=== PATIENT | female | born 1950 | race Caucasian/White ===

== ENCOUNTER 2017-01-01 03:25 | Inpatient (IN) | payer MEDICARE, BC ==
[2017-01-01] MEDS ORDERED: HYDROcodone/APAP 5-325MG 1 EACH TAB PO STA (03:39)
--- NOTE | 2017-01-01 03:41 | ED ---
Lower Extremity Injury HPI - General Source: patient, RN notes reviewed Mode of arrival: ambulatory Limitations: no limitations <Sheila Sesay - Last Filed: 01/01/17 04:11> <Sha Ramos - Last Filed: 01/01/17 05:18> - General Chief Complaint: Extremity Injury, Lower Stated Complaint: Fall,leg injury Time Seen by Provider: 01/01/17 03:36 - History of Present Illness Initial Comments: 66-year-old female presents emergency Department chief complaint of right ankle pain. Patient states she was walking out to the car and she slipped on ice. Patient states she has right ankle pain and she is unable to bear weight. Patient states this appeared to be creaking and cracking. Patient denies any knee pain. Patient denies lightheadedness or dizziness before the fall. Patient states there is no loss of consciousness. Patient states that she did not hit her head. Patient denies any other injuries from the incident.Patient denies any recent fever, chills, shortness of breath, chest pain, back pain, abdominal pain, nausea vomiting, numbness or tingling, dysuria or hematuria, constipation or diarrhea, headaches or visual changes, or any other current symptoms. (Sheila Sesay) - Related Data Home Medications Medication Instructions Recorded Confirmed Artificial Tears-Hypromellose 1 drops BOTH EYES TID PRN 11/12/16 11/13/16 [Artificial Tear Drops] Aspirin [Adult Low Dose Aspirin EC] 81 mg PO DAILY 11/12/16 11/13/16 Atorvastatin Calcium [Lipitor] 10 mg PO DAILY 11/12/16 11/13/16 Cholecalciferol [Vitamin D3] 1,000 unit PO DAILY 11/12/16 11/13/16 Cyanocobalamin [Vitamin B-12] 500 mcg PO DAILY 11/12/16 11/13/16 Insulin Aspart (For Pump) [NovoLOG 0.01 unit SQ-PUMP CONTINUOUS 11/12/16 (For Pump)] Levothyroxine Sodium [Synthroid] 75 mcg PO DAILY 11/12/16 11/13/16 Previous Rx's Medication Instructions Recorded Lisinopril [Zestril] 40 mg PO DAILY #30 tab 11/13/16 Allergies Allergy/AdvReac Type Severity Reaction Status Date / Time No Known Allergies Allergy Verified 01/01/17 03:35 Review of Systems ROS Other: All systems not noted in ROS Statement are negative. <Sheila Sesay - Last Filed: 01/01/17 04:11> ROS Other: All systems not noted in ROS Statement are negative. <Sha Ramos - Last Filed: 01/01/17 05:18> ROS Statement: Those systems with pertinent positive or pertinent negative responses have been documented in the HPI. Past Medical History Past Medical History: CVA/TIA, Diabetes Mellitus, Eye Disorder, Hyperlipidemia, Hypertension, Myocardial Infarction ([place]), Osteoarthritis (OA), Thyroid Disorder Additional Past Medical History / Comment(s): TIA, irregular heart beat, neuropathy feet Last Myocardial Infarction Date:: unknown History of Any Multi-Drug Resistant Organisms: None Reported Past Surgical History: Section, Cholecystectomy Additional Past Surgical History / Comment(s): eye surgery repair retina, laser surgery bilat. Past Anesthesia/Blood Transfusion Reactions: No Reported Reaction, Motion Sickness Past Psychological History: No Psychological Hx Reported Smoking Status: Never smoker Past Alcohol Use History: None Reported Past Drug Use History: None Reported - Past Family History Mother Family Medical History: Cancer, Coronary Artery Disease (CAD) Additional Family Medical History / Comment(s): lymphoma Father Family Medical History: Coronary Artery Disease (CAD) <Sheila Sesay - Last Filed: 01/01/17 04:11> General Exam Limitations: no limitations <Sheila Sesay - Last Filed: 01/01/17 04:11> <Sha Ramos - Last Filed: 01/01/17 05:18> - General Exam Comments Initial Comments: General: The patient is awake and alert, in no distress, and does not appear acutely ill. Neck: The neck is supple, there is no tenderness. Cardiovascular: There is a regular rate and rhythm. No murmur, rub or gallop is appreciated. Respiratory: Lungs are clear to auscultation, respirations are non-labored, breath sounds are equal. No wheezes, stridor, rales, or rhonchi. Musculoskeletal: Sensation intact with 2+ pulses. And right lower extremity. Patient has swelling around the right ankle with tenderness over the lateral malleolus. Patient has no tenderness patient approximately tib-fib showing motion of the right knee. Neurological: CN II-XII intact, There are no obvious motor or sensory deficits. Coordination appears grossly intact. Speech is normal. Skin: Skin is warm and dry and no rashes or lesions are noted. Psychiatric: Normal mood and affect. (Sheila Sesay) Procedures - Orthopedic Splinting/Casting Injury #1 Side: right Lower Extremity Injury Location: lower leg Lower Extremity Immobilizer: posterior splint (Long leg) <Sheila Sesay - Last Filed: 01/01/17 04:11> Medical Decision Making - Radiology Data Radiology results: image reviewed <Sheila Sesay - Last Filed: 01/01/17 04:11> - EKG Data -: EKG Interpreted by Hi EKG shows normal: sinus rhythm (Sinus rhythm rate 90 KS interval 154 QRS duration 70 daily QT/QTC of 360/440 poor R-wave progression no acute ST-T wave changes seen at this time.) <Sha Ramos - Last Filed: 01/01/17 05:18> - Medical Decision Making 66-year-old male presents to the right ankle injury. At this time patient appears to have a spiral tib-fib fracture as well as a trimalleolar ankle fracture. Patient was placed in a splint. Dr. Olson was called regarding the case. This time we will admit the patient we will give pain control. We discussed this with the patient she is negative. The plan. All questions have been answered. (Sheila Sesay) Disposition Time of Disposition: 04:12 Decision Date: 01/01/17 Decision Time: 04:13 <Sheila Sesay - Last Filed: 01/01/17 04:11> <Sha Ramos - Last Filed: 01/01/17 05:18> Clinical Impression: Fall, Right tibial fracture, Trimalleolar fracture of ankle, closed Disposition: ADMITTED IP TO THIS [facility] Condition: Stable Referrals: Yonis Cerda III, MD [Primary Care Provider] - 1-2 days
[2017-01-01] MEDS ORDERED: NALOXONE 0.4 MG/ML 1 ML VIAL IV PRN ×2 (04:13→18:58)
[2017-01-01] MEDS ORDERED: ONDANSETRON 4 MG/2 ML VIAL IVP PRN (04:13)
[2017-01-01] MEDS ORDERED: HYDROmorphone 1 MG/ML 1 ML SYRINGE IV PRN (04:13)
[2017-01-01] MEDS ORDERED: ACETAMINOPHEN TAB 325 MG TAB PO PRN (04:13)
--- NOTE | 2017-01-01 04:32 | XR ---
EXAMINATION TYPE: XR ankle complete RT DATE OF EXAM: 01/01/2017 3:59 AM COMPARISON: Right tibia and fibula 01/01/2017 HISTORY: History of fall on ice TECHNIQUE: Frontal, lateral and oblique images of the right ankle are obtained. COMPARISON: None. FINDINGS: There is evidence of acute displaced trimalleolar fractures of right tibia and fibula with fractures of medial and lateral malleoli and posterior malleolus with intra-articular fracture change s with anterior subluxation of distal right tibia over the talus tarsal bone with surrounding soft ti ssue swelling. The right lateral malleolus fracture is mostly in the distal metaphysis area of right fibula. Vascular calcifications are noted. [id number] degenerative changes are present in the right ank le joint. There is derangement of the right ankle mortise. There is also evidence of acute comminuted oblique displaced fracture of distal diaphysis of generali zed right tibia. IMPRESSION: 1. Evidence of trimalleolar fracture dislocation of right ankle as described above. 2. Degenerative changes. 3. Soft tissue swelling. 4. Derangement of ankle mortise.
--- NOTE | 2017-01-01 04:36 | XR ---
EXAMINATION TYPE: XR tibia fibula RT DATE OF EXAM ORDERED: 01/01/2017 3:59 AM HISTORY: Fall on ice. COMPARISON: Right ankle 01/01/2017. FINDINGS: Evidence of acute comminuted displaced fracture of distal diaphysis of right tibia with pierre rrounding soft tissue swelling. Evidence of acute displaced fracture of distal metaphysis and right lateral malleolus. Displaced acut e medial malleolus and the posterior malleolus fractures with intra-articular fracture of distal righ t tibia with derangement of ankle mortise. IMPRESSION: 1. EVIDENCE OF OBLIQUE COMMINUTED DISPLACED FRACTURE OF DISTAL DIAPHYSIS OF RIGHT TIBIA. 2. FRACTURES DISPLACED FRACTURES OF MEDIAL AND LATERAL MALLEOLI AND POSTERIOR MALLEOLUS OF THE DISTAL RIGHT TIBIA AND FIBULA WITH ANTERIOR DISLOCATION OF ANKLE MORTISE. 3. SURROUNDING SOFT TISSUE SWELLING.
[2017-01-01 05:14] LABS: Basophils % (A) 0 %; CH 30.9; CHCM 33.8; Eosinophils # (A) 0.1 k/uL (0-0.7); Eosinophils % (A) 1 %; HCT 36.2 % (34.0-46.0); HGB 12.1 gm/dL (11.4-16.0); Luc # (Auto) 0.13; Luc % (Auto) 2; Lymphocytes # (A) 1.4 k/uL (1.0-4.8); Lymphocytes % (A) 18 %; MCH 30.5 pg (25.0-35.0); MCHC 33.3 g/dL (31.0-37.0); MCV 91.6 fL (80.0-100.0); Mean Platelet Volume 6.8; Monocytes # (A) 0.4 k/uL (0-1.0); Monocytes % (A) 6 %; Neutrophils % (A) 74 %; RBC 3.95 m/uL (3.80-5.40); RDW 12.4 % (11.5-15.5); WBC 8.1 k/uL (3.8-10.6); WBC (Perox) 8.47
[2017-01-01 05:23] LABS: ALT 40 U/L (9-52); AST 24 U/L (14-36); Alkaline Phosphatase 126 U/L (38-126); Anion Gap 12 mmol/L; Blood Urea Nitrogen 27 mg/dL (7-17); Carbon Dioxide 22 mmol/L (22-30); Chloride 104 mmol/L (98-107); Glucose 284 mg/dL (74-99); Non-African American GFR(MDRD) >60 (>60 ml/min/1.73 sqM); Potassium 4.3 mmol/L (3.5-5.1); Sodium 138 mmol/L (137-145); Total Bilirubin 0.5 mg/dL (0.2-1.3); Total Protein 6.5 g/dL (6.3-8.2)
[2017-01-01 06:51] LABS: Glucose,Whole Blood 271 mg/dL (75-99)
[2017-01-01] MEDS: SODIUM CHLORIDE 0.9% 1,000 ML IV SCH ×2 (07:32→23:43)
--- NOTE | 2017-01-01 09:15 | P.HPOR ---
History of Present Illness H&P Date: 01/01/17 Chief Complaint: Right tibia and ankle fractures This is a 66-year-old female who presented to the emergency department early this morning after sustaining a fall on ice. The patient was leaving for the airport when she slipped and fell and ice. She had ankle pain and pain in her lower leg. X-rays revealed tibia fracture as well as fracture of the ankle. Subsequently she was admitted to our service for surgical intervention and care. She was seen and evaluated at bedside this morning with Dr. Tao Olson. She denies any lightheadedness or dizziness. She denies any fevers, chills, nausea, vomiting, shortness of breath or chest pain. Review of Systems See HPI Past Medical History Past Medical History: CVA/TIA, Diabetes Mellitus, Eye Disorder, Hyperlipidemia, Hypertension, Myocardial Infarction ([place]), Osteoarthritis (OA), Thyroid Disorder Additional Past Medical History / Comment(s): TIA, irregular heart beat, neuropathy feet Last Myocardial Infarction Date:: unknown History of Any Multi-Drug Resistant Organisms: None Reported Past Surgical History: Section, Cholecystectomy Additional Past Surgical History / Comment(s): eye surgery repair retina, laser surgery bilat. Past Anesthesia/Blood Transfusion Reactions: No Reported Reaction, Motion Sickness Past Psychological History: No Psychological Hx Reported Smoking Status: Never smoker Past Alcohol Use History: None Reported Past Drug Use History: None Reported - Past Family History Mother Family Medical History: Cancer, Coronary Artery Disease (CAD) Additional Family Medical History / Comment(s): lymphoma Father Family Medical History: Coronary Artery Disease (CAD) Medications and Allergies Home Medications Medication Instructions Recorded Confirmed Type Artificial Tears-Hypromellose 1 drops BOTH EYES TID PRN 11/12/16 01/01/17 History [Artificial Tear Drops] Aspirin [Adult Low Dose Aspirin EC] 81 mg PO DAILY 11/12/16 01/01/17 History Cholecalciferol [Vitamin D3] 2,000 unit PO DAILY 11/12/16 01/01/17 History Cyanocobalamin [Vitamin B-12] 500 mcg PO DAILY 11/12/16 01/01/17 History Insulin Aspart (For Pump) [NovoLOG 0.01 unit SQ-PUMP CONTINUOUS 11/12/16 History (For Pump)] Levothyroxine Sodium [Synthroid] 75 mcg PO SUMOTUTHFRSA 11/12/16 01/01/17 History Atorvastatin [Lipitor] 10 mg PO DAILY 01/01/17 01/01/17 History Enalapril [Vasotec] 10 mg PO BID 01/01/17 01/01/17 History Allergies Allergy/AdvReac Type Severity Reaction Status Date / Time levothyroxine sodium AdvReac dizzy/nausea/heart Verified 01/01/17 08:43 [From Tirosint] racing Physical Examination The patient is seen and evaluated at bedside with Dr. Tao Olson. She is not appear to be in acute distress. She is alert and orientated 3. She is pleasant and answers questions appropriately. Head normal cephalic atraumatic. Neck is supple. She moves her upper extremity is freely without difficulty or pain. Breathing appears nonlabored. On exam of her lower extremities long leg splint is intact to her right lower extremity. Her toes are pink and warm. Capillary refill is brisk. She is able to wiggle her toes without difficulty or pain. No pain out of proportion with passive motion. She has pain at the area of her fractures. She denies any additional areas of pain of her long bones and joints today. Sensation is intact. Results X-rays of the patient's right tibia and fibula and ankle show a trimalleolar fracture dislocation of the right ankle. There is also acute comminuted oblique displaced fracture of the distal diaphysis of the tibia. - Labs Labs: Abnormal Lab Results - Last 24 Hours (Table) 01/01/17 Range/Units 06:47 POC Glucose (mg/dL) 271 H (75-99) mg/dL Result Diagrams: 01/01/17 05:00 01/01/17 05:00 Assessment and Plan (1) Fall Status: Acute (2) Right tibial fracture Status: Acute (3) Trimalleolar fracture of ankle, closed Status: Acute Plan: The patient was seen and evaluated at bedside with Dr. Tao Olson. The clinical and x-ray findings were discussed with the patient. Operative treatment is recommended with IM nailing of the right tibia and ORIF of the right ankle. Possible risks and complications of the procedure were discussed at length as well. Also discussed that she is at higher risk for infection and complications secondary to diabetes. He discussed that she will be nonweightbearing following the procedure and may require rehab placement as she lives alone. We'll await consultation with medicine for surgical clearance. We are planning for possible surgery this afternoon if she is medically cleared. All her questions were answered to best my ability today. The patient agrees with the plan of care.
[2017-01-01] MEDS ORDERED: ACETAMINOPHEN IV (For NPO) 1,000 MG in EMPTY BAG 1 BAG IVPB STA (09:26)
[2017-01-01 11:24] LABS: Glucose,Whole Blood 329 mg/dL (75-99)
[2017-01-01] MEDS: INSULIN REGULAR 100 UNIT in SODIUM CHLORIDE 0.9% 100 ML IV SCH ×2 (11:24→19:22)
--- NOTE | 2017-01-01 11:47 | CONS ---
DATE OF CONSULTATION: CHIEF COMPLAINT: Fall and right ankle fracture. HISTORY OF PRESENT ILLNESS: This 66-year-old woman with a past medical history of multiple medical problems including CVA, TIA, diabetes mellitus type 2, hypertension, hyperlipidemia, myocardial infarction, DJD, history of TIA being followed by Dr. Cerda in the outpatient setting was admitted with a fall and has a trimalleolar fracture of the right ankle. The patient is a slated for surgery at this time. The blood sugars have been fluctuating at home. The patient use insulin pump. Dr. Arce is her endocrine doctor. The patient is on insulin pump at this time. The average about 18 units basal rate per her. The Accu-Cheks currently at 271. Of note, also the patient recently had multiple symptoms of back pain and chest pain and patient was evaluated by stress test, which is negative. There is no history of any fever, rigors. No history of headache, loss of consciousness or seizures at this time. PAST MEDICAL HISTORY: History of diabetes mellitus, history of hypertension, hyperlipidemia, myocardial infarction, DJD, hypothyroidism, CVA, TIA, and section and cholecystectomy. MEDICATIONS PRIOR TO ADMISSION: 1. Synthroid 75 mcg Friday, Friday, Friday, , Friday, Friday. 2. NovoLog pump 0.1, is continuous. 3. Vasotec 10 mg b.i.d. 4. Vitamin B12, 500 mcg p.o. daily. 5. Vitamin D3, 2000 daily. 6. Lipitor 10 mg p.o. daily. 7. Ecotrin 81 mg p.o. daily. 8. Artificial tears 1 drop t.i.d. p.r.n. Allergies are ntd. FAMILY HISTORY: History of cancer, coronary artery disease, lymphoma. FAMILY HISTORY: No history of smoking. No history of alcohol intake. REVIEW OF SYSTEMS: ENT: No diminished hearing or diminished vision. CARDIOVASCULAR: As mentioned earlier. RESPIRATORY: No cough. GI: No nausea. : No dysuria. NERVOUS SYSTEM: No numbness or weakness. ALLERGY/IMMUNOLOGY: No asthma or hayfever. MUSCULOSKELETAL: As mentioned earlier. HEMATOLOGY/ONCOLOGY: No history of anemia. ENDOCRINE: As mentioned earlier.. CONSTITUTIONAL: As mentioned earlier. DERMATOLOGY: Negative. RHEUMATOLOGY: Negative. PSYCHIATRY: Negative. PHYSICAL EXAMINATION: The patient is alert and oriented x2. Pulse 97, blood pressure 203/86 improved to 138/63, respirations 16, temperature 98 degrees, pulse ox 97% on room air. HEENT: Conjunctivae normal. Oral mucosa moist. NECK: No jugular venous distention. No carotid bruit. No lymph node enlargement. CARDIOVASCULAR: S1 and S2, muffled. No S3, no S4. No murmur, no thrills. RESPIRATORY: Breath sounds diminished at the bases. No rhonchi, no crackles. ABDOMEN: Soft, nontender. No mass palpable. LEGS: Status post right ankle fracture. NERVOUS SYSTEM: Higher function as mentioned earlier. Moves all 4 limbs except right lower limb because of pain. Otherwise, no focal motor or sensory deficit. LYMPHATICS: No lymphadenopathy of neck, axillae or groin. SKIN: No ulcer, rash bleeding. LABS: CBC within normal limits. BUN is 27. Glucose 284 and 271. ASSESSMENT: 1. Status post right ankle fracture. 2. Diabetes mellitus type 2. 3. On insulin pump. 4. History of coronary artery disease. 5. History of recent negative stress test. 6. Cerebrovascular accident, transient ischemic attack. 7. Hypertension. 8. Hyperlipidemia. 9. History of degenerative joint disease. 10. History of hypothyroidism. 11. History of transient ischemic attack. 12. History of peripheral neuropathy. 13. History of irregular heart beat. 14. FULL CODE. RECOMMENDATIONS AND DISCUSSION: This 66-year-old woman presented with multiple complex medical issues. At this time, I recommend continue the current medications, continue the symptomatic treatment. I would recommend to continue with insulin drip to control the blood sugar better. Her previous hemoglobin A1c was also slightly high. Otherwise, the patient will be cleared for surgery. Resume the home medications and we will follow the patient closely with you. Thank you Dr. Olson for letting us participate in the care of this patient. A copy of dictation forwarded to Dr. Cerda who is the primary care physician. HARRIS
[2017-01-01 12:10] LABS: Glucose,Whole Blood 304 mg/dL (75-99)
[2017-01-01] MEDS: INSULIN LISPRO (humaLOG) 300 UNIT/3 ML VIAL SQ SCH ×2 (12:40→20:06)
[2017-01-01 12:57] LABS: Glucose,Whole Blood 224 mg/dL (75-99)
[2017-01-01 13:40] LABS: Glucose,Whole Blood 169 mg/dL (75-99)
[2017-01-01 13:55] LABS: Hemoglobin A1C 9.4 % (4.2-6.1)
[2017-01-01 13:58] LABS: Glucose,Whole Blood 152 mg/dL (75-99)
[2017-01-01] MEDS ORDERED: IV FLUID CONTINUATION 1,000 ML IV ONE ×2 (14:10)
[2017-01-01 14:18] LABS: Glucose,Whole Blood 123 mg/dL (75-99)
[2017-01-01] MEDS ORDERED: ceFAZolin 2 GM in SODIUM CHLORIDE 0.9% 100 ML IVPB ONE (14:32)
--- NOTE | 2017-01-01 14:54 | P.HPOR ---
History of Present Illness H&P Date: 01/01/17 The patient is a very pleasant 66-year-old female with a medical history significant for insulin-dependent diabetes who tripped on the ice early this morning as she was getting ready to go to the airport. She was brought to the ER where x-rays showed a displaced bimalleolar ankle fracture and ipsilateral tibial shaft fracture. She was admitted under the care of my partner Dr. Tao Olson. At the time of my evaluation the patient is complaining of isolated right leg and ankle pain. Past Medical History Past Medical History: CVA/TIA, Diabetes Mellitus, Eye Disorder, Hyperlipidemia, Hypertension, Myocardial Infarction ([place]), Osteoarthritis (OA), Thyroid Disorder Additional Past Medical History / Comment(s): TIA, irregular heart beat, neuropathy feet Last Myocardial Infarction Date:: unknown History of Any Multi-Drug Resistant Organisms: None Reported Past Surgical History: Section, Cholecystectomy Additional Past Surgical History / Comment(s): eye surgery repair retina, laser surgery bilat. Past Anesthesia/Blood Transfusion Reactions: No Reported Reaction, Motion Sickness Past Psychological History: No Psychological Hx Reported Smoking Status: Never smoker Past Alcohol Use History: None Reported Past Drug Use History: None Reported - Past Family History Mother Family Medical History: Cancer, Coronary Artery Disease (CAD) Additional Family Medical History / Comment(s): lymphoma Father Family Medical History: Coronary Artery Disease (CAD) Medications and Allergies Home Medications Medication Instructions Recorded Confirmed Type Artificial Tears-Hypromellose 1 drops BOTH EYES TID PRN 11/12/16 01/01/17 History [Artificial Tear Drops] Aspirin [Adult Low Dose Aspirin EC] 81 mg PO DAILY 11/12/16 01/01/17 History Cholecalciferol [Vitamin D3] 2,000 unit PO DAILY 11/12/16 01/01/17 History Cyanocobalamin [Vitamin B-12] 500 mcg PO DAILY 11/12/16 01/01/17 History Insulin Aspart (For Pump) [NovoLOG 0.01 unit SQ-PUMP CONTINUOUS 11/12/16 History (For Pump)] Levothyroxine Sodium [Synthroid] 75 mcg PO SUMOTUTHFRSA 11/12/16 01/01/17 History Atorvastatin [Lipitor] 10 mg PO DAILY 01/01/17 01/01/17 History Enalapril [Vasotec] 10 mg PO BID 01/01/17 01/01/17 History Allergies Allergy/AdvReac Type Severity Reaction Status Date / Time levothyroxine sodium AdvReac dizzy/nausea/heart Verified 01/01/17 14:14 [From Tirosint] racing Physical Examination A focused exam of the right leg was conducted. On inspection the patient has a long leg splint in place. The thigh and calf are soft. Sensation is intact to light touch in the right foot. She is able to actively plantarflex and dorsiflex her ankle and her toes. There is no pain with passive range of motion of her toes. Results X-rays of the right ankle and tibia show a displaced spiral tibia fracture and displaced bimalleolar ankle fracture. - Labs Labs: Abnormal Lab Results - Last 24 Hours (Table) 01/01/17 01/01/17 01/01/17 Range/Units 06:47 10:58 12:03 POC Glucose (mg/dL) 271 H 329 H 304 H (75-99) mg/dL 01/01/17 01/01/17 01/01/17 Range/Units 12:47 13:28 13:56 POC Glucose (mg/dL) 224 H 169 H 152 H (75-99) mg/dL 01/01/17 Range/Units 14:14 POC Glucose (mg/dL) 123 H (75-99) mg/dL Result Diagrams: 01/01/17 05:00 01/01/17 05:00 Assessment and Plan (1) Trimalleolar fracture of ankle, closed Status: Acute Plan: I was asked by my partner Dr. Tao Olson to assist him with surgery. I discussed the potential risks and complications of surgery with the patient prior to the procedure. The patient understands that she is at a higher risk having a complication due to her multiple medical problems including diabetes. Risks discussed include but are not limited to risks from anesthesia, risk of superficial infection, risk of deep infection, risk of delayed wound healing, risk of wound necrosis, risk of fracture nonunion, risk of fracture nonunion, risk of intraoperative fracture, risk of postoperative fracture, risk of postoperative displacement, risk of fracture nonunion risk of fracture malunion , risk of chronic pain, risk of chronic swelling, risk of anterior knee pain, risk of posterior medical arthritis, and possibly loss of limb or life. The patient also understands the potential for medical complications postoperatively including DVT, PE, urinary tract infection, acute coronary event , stroke, pressure sore, pneumonia and even .
[2017-01-01] MEDS ORDERED: MIDAZOLAM 2 MG/2 ML VIAL ONE (14:59)
[2017-01-01] MEDS ORDERED: PHENYLEPHRINE-0.9% NACL SYG 1 MG/10 ML SYRINGE ONE (14:59)
[2017-01-01] MEDS ORDERED: SUCCINYLCHOLINE CHLORIDE 100 MG/5 ML SYR IV ONE (14:59)
[2017-01-01] MEDS ORDERED: PROPOFOL 10 MG/ML 20 ML VIAL IV ONE (14:59)
[2017-01-01] MEDS ORDERED: ePHEDrine 50 MG/ML 1 ML AMP ONE (14:59)
[2017-01-01] MEDS ORDERED: fentaNYL (PF) 50 MCG/ML 2 ML AMP ONE (14:59)
[2017-01-01] MEDS ORDERED: LIDOCAINE 1% INJ 10MG/ML (20 ML MDV) ONE (14:59)
[2017-01-01] MEDS ORDERED: HYDROmorphone (PF) 1 MG/ML ONE (14:59)
[2017-01-01] MEDS ORDERED: LACTATED RINGERS 1,000 ML IV ONE ×3 (15:51→18:38)
[2017-01-01] MEDS ORDERED: ceFAZolin 3,000 MG in SODIUM CHLORIDE 0.9% IRRIGATIO 3,000 ML IRRIGATION ONE (17:27)
[2017-01-01] MEDS ORDERED: HYDROmorphone 1 MG/ML 1 ML SYRINGE IVP PRN (18:58)
[2017-01-01] MEDS ORDERED: HYDROcodone/APAP 5-325MG 1 EACH TAB PO PRN (18:58)
[2017-01-01 19:03] LABS: Glucose,Whole Blood 353 mg/dL (75-99)
--- NOTE | 2017-01-01 19:27 | P.OP ---
Date of Procedure: 01/01/17 Preoperative Diagnosis: 1. Closed right tibia fracture 2. Closed right trimalleolar ankle fracture 3. Insulin-dependent diabetes 4. Osteoporosis Postoperative Diagnosis: Same Procedure(s) Performed: 1. Right intramedullary tibial nail 2. Open reduction internal fixation right ankle fracture (open reduction internal fixation of posterior malleolus and lateral malleolus with nonoperative management of medial malleolus fracture) Implants: Rayne 320 x 13 tibial nail, cannulated 4.0 mm screws for posterior malleolus, one third tubular plate lateral malleolus Anesthesia: ROLANDO Surgeon: Guy aHrvey Logistics Research Engineer #1: Tao Olson Logistics Research Engineer #2: Irais Dwyer Estimated Blood Loss (ml): 200 IV fluids (ml): 2,600 Urine output (ml): 250 Pathology: none sent Indications for Procedure: The patient is a 66-year-old female with multiple medical problems including insulin-dependent diabetes and sterile porosis who presented to the emergency department after sustaining a low-energy fall and she slipped on ice. X-rays in the emergency department showed a right tibial shaft and right ankle fracture. She was admitted under the care of my partner Dr. Tao Olson. The patient was cleared for surgery. I met with the patient preoperatively to discuss surgery. We discussed operative fixation of both the tibia and ankle fracture if her soft tissue swelling allowed. We also discussed staged fixation with intramedullary nailing of the tibia fracture followed by open reduction and internal fixation of her ankle fracture at a later date. We discussed potential risks and complication of surgery. The patient understands that she is at a much higher risk of having a complication due to the fact that she is an insulin-dependent diabetic and has multiple other medical problems. Tried to surgery I discussed the potential risks and complication of my proposed surgery including but not limited to risk of anesthesia, risk of superficial infection, risk of deep infection, risk of delayed wound healing, risk of wound necrosis, risk of need for plastic surgery intervention, risk of fracture nonunion, risk of fracture malunion, risk of postherpetic arthritis, risk of intraoperative fracture, risk of postoperative fracture, risk of displacement postoperatively, risk of postherpetic arthritis, risk of need for further surgery, risk of broken hardware, risk of chronic pain, risk of chronic swelling, risk of inability to ambulate, risk of need for assistive device to ambulate, risk of damage to local blood vessels and nerves, risk of complication regional pain syndrome, and even loss of limb. We also discussed the possibility for postoperative medical complications including acute gurney event, stroke, DVT, PE, pneumonia, pressure sore, and urinary tract infection. The patient provided her verbal and written consent to go forward with surgery. Description of Procedure: The patient was identified and prepped holding the correct right leg was marked my initials. I reviewed the consent form with the patient and answered all of her questions. She was then brought back to the operating room. Upon entering the operating room she was transferred onto the operating room table and all bony prominences were well-padded. General anesthetic was administered. Preoperative antibiotics were administered. Her splint was taken down and she had soft compartments and no open wounds. A bone foam ramp was placed under her right buttock internally rotating her leg. A padded tourniquet was applied to the proximal aspect of her thigh but was not inflated for the entire case. The patient's right leg was then prepped and draped in the standard sterile fashion using Betadine scrub and paint. Prior to starting surgery timeout was performed identifying the correct patient, operative extremity, and procedure. I began by reducing and clamping her tibial shaft fracture. The leg was flexed at the knee over a radiolucent triangle. C-arm was brought in to identify the location of the fracture. 1 cm stab incisions were made anteriorly over the tibia and medially at the site of the fracture. Dissection was carried down carefully with hemostats down to bone. A large crukk-sh-tzjwt reduction clamp was used to gently reduce the fracture. C-arm verified the reduction. The fracture appeared to be anatomically reduced in both the AP and lateral plane. The large clamp was left in place and attention was then turned to the ankle. I elected to perform a closed reduction and percutaneous fixation of her posterior malleolus fracture. A stab incision was made anteriorly over the ankle and a second stab was made over the posterior lateral aspect of the ankle in line for a possible posterolateral approach to the ankle. Dissection was carried down bluntly with a hemostat to bone. A second large wjcmd-wt-fqgxd reduction clamp was used to gently reduce the posterior malleolus fracture. C- arm was brought in to verify reduction. On the lateral view the posterior malleolus appeared to be nicely reduced and the talus was centered under the plafond with no evidence of posterior subluxation. I then placed 2 K wires laterally from anterior to posterior and the distal tibia. The K wires captured the posterior malleolus fracture poor out of the way of our nail path. Partially threaded 4.0 cannulated screws were placed. The K wires and clamps were removed and the posterior malleolus remained well reduced. Attention was then turned back to the tibia. A padded radiolucent triangle was placed under the knee hyperflexing it. A 3 cm incision was then marked out over the inferior pole of the patella centered on the patellar tendon. Skin incision was made a 15 blade scalpel and dissection was carried down carefully to the peritenon over the patellar tendon. The patellar tendon was then incised longitudinally in line with the skin incision. C-arm was brought in and a guidepin for our opening reamer was placed. On the AP view the guidepin was aligned with the medial border of the lateral tibial spine in line with the tibial shaft. On the lateral view the guide pin was placed just off the anterior crest of the tibia. A guidepin was then placed under power into the proximal tibia and and opening reamer was used to create a path for the nail. A ball-tipped guidewire was then placed through this hole down across the fracture site distally to the physes he'll scar. A cannulated measuring device was placed over the ball-tipped guidewire and measured at 340. I then sequentially reamed in 1 mm increments starting with a 9 mm reamer. I did not get chatter until a size 13 mm reamer. I then reamed an additional 1.5 mm to a final reamer of 14.5 mm. A 320 x 13 nail was dispensed. I verified that the targeting arm and trochars lined up. The nail was then placed over the ball- tipped guidewire and gently tapped down to the thigh seal scar. 2 proximal locking screws were placed the targeting arm. The proximal targeting arm was then removed and the leg was extended on a ramp. C-arm was brought in and perfect circles were obtained distally. I then placed 2 distal interlocking screws. Attention was then turned to the distal fibula. The ankle appeared stable under stress so I elected to perform operative fixation the distal fibula. There was moderate swelling but not to the point that I thought her ankle fracture surgery needed to be staged. A longitudinal incision was made over the distal fibula and dissection was carried down carefully through subcutaneous tissue to the periosteum over the distal fibula. The fracture site was identified and cleaned of consolidating hematoma. A reduction was performed and a dxrxb-tv-nttbm reduction clamp was used told compression across the fracture site. The patient had extremely soft bone and the fxrnd-ae-nzqfc reduction clamp fractured through the anterior and which are cortex of the fibula. I then held the reduction with a lobster claw. I attempted to place a 2.7 mm locking screw across the fracture but as the screws generating compression fracture the anterior cortex. I then held the fracture reduced with a lobster claw and placed a one third tubular plate over the lateral aspect of the fibula. A 35 screw was placed in the hole just proximal to the fracture bringing it down to bone. I then placed a 35 cancellus screw in the hole just distal to the fracture and a 35 locking screw in the most distal hole the plate. I then placed two 3.5 millimeter nonlocking screws in the most proximal 2 holes of the plate. At this point fluoroscopy was brought in for final imaging. AP and lateral x-rays of the knee, tibia, and ankle were taken which showed all fractures to be reduced and hardware to be in appropriate position. All wounds were then copiously irrigated. The patellar tendon was closed with a running 0 Vicryl stitch. Deep subcu was closed with 2-0 Vicryl and the skin was closed using 3-0 nylon. The periosteum over the fibular plate was closed with a running 0 Vicryl stitch. The deep subcu was reapproximated using 2-0 Vicryl. The skin was closed using 3-0 nylon Allgower modification of the Donati stitch. All stab incisions were closed using 3-0 nylon horizontal mattress stitches. At the completion of the case I verified that all instrument sponge and sharp counts were correct The calf was soft at the completion of surgery. Sterile dressings consisting of Betadine soaked Adaptic , 4 x 4, and sterile web roll was applied. The drapes were taken down and a very well-padded bulky Weiss type splint was placed. The patient was then awoken from her anesthetic, transferred to her [place], and brought to PACU having tolerated the procedure well. Both Dr. Tao Olson and Cherrie Dwyer were required as assistance due to the multiple fractures. Assistance included positioning, exposure, retraction, fracture reduction, placement of hardware, wound closure, and splinting. Plan: The patient is to remain strictly nonweightbearing on her right leg. She is to ice and elevate her right leg at all times except for hygiene and getting up in the chair. 2 doses postoperative antibiotics. DVT prophylaxis with Lovenox 30 mg daily 4 weeks. Bone health with calcium carbonate 500 mg 3 times a day, vitamin D3 2000 units daily, and 25-hydroxy vitamin D level pending
[2017-01-01] MEDS ORDERED: ONDANSETRON 4 MG/2 ML VIAL IVP ONE (19:42)
[2017-01-01 19:57] LABS: Glucose,Whole Blood 389 mg/dL (75-99)
[2017-01-01 20:01] LABS: Glucose,Whole Blood 374 mg/dL (75-99)
[2017-01-01 20:12] LABS: Basophils % (A) 0 %; CH 30.1; CHCM 31.3; Eosinophils % (A) 0 %; HCT 30.5 % (34.0-46.0); HDW 2.19; Luc # (Auto) 0.02; Luc % (Auto) 0; Lymphocytes # (A) 0.6 k/uL (1.0-4.8); Lymphocytes % (A) 6 %; MCH 30.6 pg (25.0-35.0); MCHC 31.7 g/dL (31.0-37.0); MCV 96.6 fL (80.0-100.0); Mean Platelet Volume 6.7; Monocytes # (A) 0.2 k/uL (0-1.0); Monocytes % (A) 2 %; Neutrophils # (A) 8.8 k/uL (1.3-7.7); Neutrophils % (A) 91 %; RBC 3.16 m/uL (3.80-5.40); RDW 12.4 % (11.5-15.5); WBC 9.7 k/uL (3.8-10.6); WBC (Perox) 9.88
[2017-01-01 20:21] LABS: HGB 9.7 gm/dL (11.4-16.0)
[2017-01-01 20:27] LABS: ALT 44 U/L (9-52); AST 30 U/L (14-36); Alkaline Phosphatase 108 U/L (38-126); Anion Gap 16 mmol/L; Blood Urea Nitrogen 25 mg/dL (7-17); Calcium 8.4 mg/dL (8.4-10.2); Carbon Dioxide 16 mmol/L (22-30); Chloride 105 mmol/L (98-107); Glucose 378 mg/dL (74-99); Non-African American GFR(MDRD) >60 (>60 ml/min/1.73 sqM); Potassium 4.4 mmol/L (3.5-5.1); Sodium 137 mmol/L (137-145); Total Bilirubin 0.5 mg/dL (0.2-1.3); Total Protein 5.5 g/dL (6.3-8.2)
[2017-01-01 20:36] LABS: Glucose,Whole Blood 311 mg/dL (75-99)
[2017-01-01] MEDS: SENNOSIDES-DOCUSATE SODIUM 1 EACH TAB PO SCH (20:48)
[2017-01-01 21:12] LABS: Glucose,Whole Blood 291 mg/dL (75-99)
[2017-01-01 21:58] LABS: Glucose,Whole Blood 264 mg/dL (75-99)
[2017-01-01 22:30] LABS: Glucose,Whole Blood 230 mg/dL (75-99)
[2017-01-01] MEDS: ceFAZolin 2 GM in SODIUM CHLORIDE 0.9% 100 ML IVPB SCH (23:35)
[2017-01-01] MEDS: CALCIUM CARBONATE 500 MG CHEWABLE PO SCH (23:35)
[2017-01-02 00:58] LABS: Glucose,Whole Blood 130 mg/dL (75-99)
[2017-01-02] MEDS: INSULIN REGULAR 100 UNIT in SODIUM CHLORIDE 0.9% 100 ML IV SCH (02:34)
[2017-01-02 02:42] LABS: Glucose,Whole Blood 179 mg/dL (75-99)
[2017-01-02] MEDS: HYDROcodone/APAP 5-325MG 1 EACH TAB PO PRN ×4 (02:46→20:27)
[2017-01-02 04:36] LABS: Glucose,Whole Blood 168 mg/dL (75-99)
[2017-01-02 06:27] LABS: Glucose,Whole Blood 164 mg/dL (75-99)
[2017-01-02] MEDS: ceFAZolin 2 GM in SODIUM CHLORIDE 0.9% 100 ML IVPB SCH (07:21)
--- NOTE | 2017-01-02 07:36 | XR ---
EXAMINATION TYPE: XR ankle limited RT DATE OF EXAM: 01/01/2017 6:30 PM COMPARISON: NONE HISTORY: ORIF right ankle TECHNIQUE: Fluoroscopy for procedure FINDINGS: 7 images were performed. Reduction internal fixation documentation. Images were obtained ov er the tibia and ankle IMPRESSION: 1. Fluoroscopy for procedure documentation.
--- NOTE | 2017-01-02 07:42 | XR ---
FLUOROSCOPY 2 minutes and 8 seconds of fluoroscopy time were utilized during internal fixation of the right tibia . 7 images document the procedure.
--- NOTE | 2017-01-02 07:44 | FL ---
Fluoroscopy INDICATION: Pain FINDINGS: Fluoroscopy time: 2 minutes 8 seconds. Images obtained: 0. IMPRESSIONS: 1. Documentation of fluoroscopy.
[2017-01-02 08:47] LABS: Glucose,Whole Blood 144 mg/dL (75-99)
[2017-01-02] MEDS: INSULIN LISPRO (humaLOG) 300 UNIT/3 ML VIAL SQ SCH (08:47)
[2017-01-02] MEDS: CALCIUM CARBONATE 500 MG CHEWABLE PO SCH ×3 (08:47→20:21)
[2017-01-02] MEDS ORDERED: ENOXAPARIN 30 MG/0.3 ML SYRINGE SQ SCH (09:00)
[2017-01-02] MEDS ORDERED: INSULIN PUMP TARGET GLUCOSE 1 EACH MISC MISCELLANE PRN (09:43)
[2017-01-02] MEDS ORDERED: INSULIN PUMP ACTIVE INSULIN 1 EACH MISC MISCELLANE PRN (09:43)
[2017-01-02] MEDS ORDERED: INSPUCOR MISCELLANE PRN (09:43)
[2017-01-02] MEDS ORDERED: INSULIN LISPRO (humaLOG) 300 UNIT/3 ML VIAL SQ PRN (09:43)
[2017-01-02] MEDS ORDERED: INSULIN PUMP BASAL RATES 1 EACH MISC MISCELLANE PRN (09:43)
[2017-01-02] MEDS ORDERED: LISINOPRIL 20 MG TAB PO SCH (10:00)
[2017-01-02 10:08] VITALS: BMI 23.3
--- NOTE | 2017-01-02 10:09 | P.PN ---
Subjective Principal diagnosis: Right Tibia Fracture Right Ankle dislocation/fracture Patient is postop day #1 from right tibial nailing and ORIF of right ankle fracture. She has some pain at the surgical site as expected but denies any new complaints. She denies numbness, tingling or calf pain. She's denying fever, chills, chest pain, shortness breath, nausea, vomiting, dizziness, headaches, rash, slurred speech or other. Objective - Vital Signs Vital signs: Vital Signs Temp 98.9 F 01/02/17 07:29 Pulse 98 01/02/17 07:29 Resp 16 01/02/17 07:29 BP 122/59 01/02/17 07:29 Pulse Ox 99 01/02/17 07:29 Intake & Output 01/01/17 01/02/17 01/02/17 18:59 06:59 18:59 Intake Total 329.417 4.833 Output Total 325 Balance 4.417 4.833 Intake: IV 300 Sodium Chloride 0.9% 1, 200 000 ml @ 20 mls/hr IV . Q24H EZE Rx#:[id number] ceFAZolin 2 gm In Sodium 100 Chloride 0.9% 100 ml @ 100 mls/hr IVPB Q8H EZE Rx#:[id number] Intake, IV Titration 29.417 4.833 Amount Insulin Regular 100 unit 29.417 4.833 In Sodium Chloride 0.9% 100 ml @ Titrate IV .Q0M EZE Rx#:[id number] Output: Urine 325 Uretheral (Squires) 325 Other: Voiding Method Indwelling Catheter - Exam Inspection of the right lower extremity shows splint and bandages in place. There is no evidence of active bleeding or drainage. Neurovascular status is intact proximal to the splint. She has sensation of pressure in all digits of the right foot and is able to flex and extend all digits. There is less than 2 second cap refill. Left lower extremity reveals calf soft and nontender. - Constitutional General appearance: Present: no acute distress - Psychiatric Psychiatric: Present: A&O x's 3, appropriate affect, intact judgment & insight - Labs CBC & Chem 7: 01/01/17 19:53 01/01/17 19:53 Labs: Abnormal Lab Results - Last 24 Hours (Table) 01/01/17 01/01/17 01/01/17 Range/Units 18:59 19:35 19:53 RBC 3.16 L (3.80-5.40) m/uL Hgb 9.7 L D (11.4-16.0) gm/dL Hct 30.5 L (34.0-46.0) % Neutrophils # 8.8 H (1.3-7.7) k/uL Lymphocytes # 0.6 L (1.0-4.8) k/uL Carbon Dioxide (22-30) mmol/L BUN (7-17) mg/dL Glucose (74-99) mg/dL POC Glucose (mg/dL) 353 H 389 H (75-99) mg/dL Total Protein (6.3-8.2) g/dL Albumin (3.5-5.0) g/dL 01/01/17 01/01/17 01/01/17 Range/Units 19:53 19:59 20:34 RBC (3.80-5.40) m/uL Hgb (11.4-16.0) gm/dL Hct (34.0-46.0) % Neutrophils # (1.3-7.7) k/uL Lymphocytes # (1.0-4.8) k/uL Carbon Dioxide 16 L (22-30) mmol/L BUN 25 H (7-17) mg/dL Glucose 378 H (74-99) mg/dL POC Glucose (mg/dL) 374 H 311 H (75-99) mg/dL Total Protein 5.5 L (6.3-8.2) g/dL Albumin 3.0 L (3.5-5.0) g/dL 01/01/17 01/01/17 01/01/17 Range/Units 21:10 21:46 22:29 RBC (3.80-5.40) m/uL Hgb (11.4-16.0) gm/dL Hct (34.0-46.0) % Neutrophils # (1.3-7.7) k/uL Lymphocytes # (1.0-4.8) k/uL Carbon Dioxide (22-30) mmol/L BUN (7-17) mg/dL Glucose (74-99) mg/dL POC Glucose (mg/dL) 291 H 264 H 230 H (75-99) mg/dL Total Protein (6.3-8.2) g/dL Albumin (3.5-5.0) g/dL 01/02/17 01/02/17 01/02/17 Range/Units 00:35 02:29 04:34 RBC (3.80-5.40) m/uL Hgb (11.4-16.0) gm/dL Hct (34.0-46.0) % Neutrophils # (1.3-7.7) k/uL Lymphocytes # (1.0-4.8) k/uL Carbon Dioxide (22-30) mmol/L BUN (7-17) mg/dL Glucose (74-99) mg/dL POC Glucose (mg/dL) 130 H 179 H 168 H (75-99) mg/dL Total Protein (6.3-8.2) g/dL Albumin (3.5-5.0) g/dL 01/02/17 01/02/17 Range/Units 06:23 08:31 RBC (3.80-5.40) m/uL Hgb (11.4-16.0) gm/dL Hct (34.0-46.0) % Neutrophils # (1.3-7.7) k/uL Lymphocytes # (1.0-4.8) k/uL Carbon Dioxide (22-30) mmol/L BUN (7-17) mg/dL Glucose (74-99) mg/dL POC Glucose (mg/dL) 164 H 144 H (75-99) mg/dL Total Protein (6.3-8.2) g/dL Albumin (3.5-5.0) g/dL Assessment and Plan (1) Trimalleolar fracture of ankle, closed Narrative/Plan: She will continue with routine postop orthopedic protocol including pain management, wound care, physical therapy, DVT prophylaxis and medical management. She is nonweightbearing with the right lower extremity. Expect that she will transfer to an extended Care facility for rehab in the next 1-2 days. Status: Acute (2) Right tibial fracture Status: Acute Time with Patient: Less than 30
[2017-01-02] MEDS ORDERED: ARTIFICIAL TEARS-HYPROMELLOSE DROPS 15 ML BTL BOTH EYES PRN (10:10)
[2017-01-02] MEDS ORDERED: Insulin Aspart (For Pump) 100 UNIT/ML VIAL SQ-PUMP SCH (10:15)
[2017-01-02 10:41] LABS: Glucose,Whole Blood 161 mg/dL (75-99)
[2017-01-02 11:59] LABS: Glucose,Whole Blood 254 mg/dL (75-99)
[2017-01-02] MEDS: CYANOCOBALAMIN 500 MCG TAB PO SCH (12:59)
[2017-01-02] MEDS: ATORVASTATIN 10 MG TAB PO SCH ×2 (12:59→16:26)
[2017-01-02] MEDS: ASPIRIN 81 MG CHEW PO SCH (12:59)
[2017-01-02] MEDS: LEVOTHYROXINE 75 MCG TAB PO SCH (12:59)
[2017-01-02] MEDS: MULTIVITAMINS, THERA 1 EACH TAB PO SCH (12:59)
[2017-01-02] MEDS: CHOLECALCIFEROL 1,000 UNIT TAB PO SCH (12:59)
[2017-01-02] MEDS: INSULIN PUMP MEAL BOLUS 1 UNIT MISC MISCELLANE SCH ×3 (13:03→20:32)
--- NOTE | 2017-01-02 13:53 | PN ---
DATE OF SERVICE: 01/02/2017 This 66-year-old woman was admitted with right ankle fracture, underwent right intramedullary tibial nailing and open reduction and internal fixation of the right ankle fracture by Dr. Harvey. No chest pain. No palpitations. No fever. The patient is still on insulin drip. No chest pain or palpitation. No fever. On exam, alert and oriented times three. Pulse 98, blood pressure 122/59, respirations 16, temperature 98.9, pulse ox 99% on 2 liters. HEENT: Conjunctivae normal. NECK: No jugular venous distention. CARDIOVASCULAR: S1, S2 muffled. RESPIRATORY: Breath sounds diminished at the bases. No rhonchi, no crackles. ABDOMEN: Soft, nontender. Legs: Status post right ankle surgery. Nervous system: No focal deficits. LABS: Accu-Cheks 230, 254, hemoglobin 9.7. ASSESSMENT: 1. Right ankle fracture, status post ORIF. 2. Diabetes type 2 on insulin pump. 3. History of coronary artery disease. 4. History of recent negative stress test. 5. History of cerebrovascular accident, transient ischemic attack. 6. Hypertension. 7. Hyperlipidemia. 8. History of degenerative joint disease. 9. Hypothyroidism. 10. History of transient ischemic attack. 11. Peripheral neuropathy. 12. Irregular heart, cardiac rhythm. 13. FULL CODE. 14. Anemia, possibly dilutional. 15. Increased BUN. DISCUSSION AND PLAN: In this 66 -year-old woman who presented with multiple complex medical issues, we will monitor the patient closely, continue the current medications, I would recommend DVT prophylaxis. Recommend transition to insulin pump. The patient has recently received a new insulin pump according to her and is being followed by in the outpatient setting. I would recommend to continue the current medications, continue symptomatic treatment. See orders for further details. Further recommendations to follow. ZUHAIRD
[2017-01-02 17:05] LABS: Glucose,Whole Blood 250 mg/dL (75-99)
[2017-01-02] MEDS: SENNOSIDES-DOCUSATE SODIUM 1 EACH TAB PO SCH (20:20)
[2017-01-02] MEDS: ENALAPRIL 10 MG PO SCH (20:20)
[2017-01-02 20:32] LABS: Glucose,Whole Blood 222 mg/dL (75-99)
[2017-01-03] MEDS: HYDROcodone/APAP 5-325MG 1 EACH TAB PO PRN ×6 (00:39→23:13)
[2017-01-03 03:29] LABS: Glucose,Whole Blood 198 mg/dL (75-99)
[2017-01-03] MEDS: SODIUM CHLORIDE 0.9% 1,000 ML IV SCH ×2 (06:09→20:32)
[2017-01-03] MEDS: LEVOTHYROXINE 75 MCG TAB PO SCH (06:29)
[2017-01-03 07:21] LABS: Glucose,Whole Blood 185 mg/dL (75-99)
[2017-01-03 07:29] LABS: Basophils % (A) 1 %; CH 30.7; CHCM 32.7; Eosinophils % (A) 0 %; HCT 26.6 % (34.0-46.0); HDW 2.16; HGB 8.6 gm/dL (11.4-16.0); Luc # (Auto) 0.15; Luc % (Auto) 2; Lymphocytes # (A) 1.2 k/uL (1.0-4.8); Lymphocytes % (A) 16 %; MCH 30.4 pg (25.0-35.0); MCHC 32.3 g/dL (31.0-37.0); MCV 94.2 fL (80.0-100.0); Mean Platelet Volume 6.8; Monocytes # (A) 0.5 k/uL (0-1.0); Monocytes % (A) 7 %; Neutrophils # (A) 5.7 k/uL (1.3-7.7); Neutrophils % (A) 75 %; RBC 2.83 m/uL (3.80-5.40); RDW 12.7 % (11.5-15.5); WBC 7.6 k/uL (3.8-10.6); WBC (Perox) 7.83
--- NOTE | 2017-01-03 08:53 | P.DS ---
Providers Date of admission: 01/01/17 18:58 Expected date of discharge: 01/03/17 Attending physician: Guy Harvey Primary care physician: Yonis Cerda - Discharge Diagnosis(es) (1) Fall Current Visit: Yes Status: Acute (2) Trimalleolar fracture of ankle, closed Current Visit: Yes Status: Acute (3) Status post ORIF of fracture of ankle Current Visit: Yes Status: Acute Hospital Course: This is a pleasant 66-year-old female who is status post right intramedullary tibial nail and ORIF of a posterior malleolus and lateral malleolus fracture with nonoperative treatment of the medial malleolus fracture by Dr. Harvey. The patient originally presented to the emergency department at [facility] after sustaining a fall after slipping on ice at home. She was found to have a right tibial shaft and right ankle fracture. She was admitted to the hospital for further evaluation and care by orthopedic surgery. The patient was cleared for surgery by medical management. The procedures performed without complications or sequelae. The patient has done well postoperatively. The patient was seen and evaluated at the bedside today and denies any new complaints. Pain is reasonably controlled. Dressing and splint is clean dry and intact. The patient is able to wiggle her toes without significant pain. The patient's right lower extremity is neurovascularly intact. The patient is orthopedically stable for discharge to skilled rehab today. See medication reconciliation for accurate list of discharge medications. Pertinent Studies: Laboratory Tests 01/03/17 01/03/17 07:04 07:16 WBC 7.6 RBC 2.83 L Hgb 8.6 L Hct 26.6 L POC Glucose (mg/dL) 185 H Patient Condition at Discharge: Stable Plan - Discharge Summary New Discharge Prescriptions: Calcium Carbonate [Tums] 500 mg PO TID #90 chewable Cholecalciferol [Vitamin D3] 2,000 unit PO DAILY #90 tablet Enoxaparin Sodium [Lovenox] 30 mg SQ DAILY #30 syringe HYDROcodone/APAP 5-325MG [[place] 5] 1 - 2 each PO Q4-6H PRN #60 tab PRN Reason: Pain Multivitamins, Thera [Multivitamin] 1 each PO DAILY@1200 #30 tab Sennosides-Docusate Sodium [Senokot-S] 2 tab PO DAILY #30 tablet Discharge Medication List Artificial Tears-Hypromellose [Artificial Tear Drops] 1 drops BOTH EYES TID PRN 11/12/16 [History] Aspirin [Adult Low Dose Aspirin EC] 81 mg PO DAILY 11/12/16 [History] Cholecalciferol [Vitamin D3] 2,000 unit PO DAILY 11/12/16 [History] Cyanocobalamin [Vitamin B-12] 500 mcg PO DAILY 11/12/16 [History] Insulin Aspart (For Pump) [NovoLOG (For Pump)] 0.01 unit SQ-PUMP CONTINUOUS [History] Levothyroxine Sodium [Synthroid] 75 mcg PO SUMOTUTHFRSA 11/12/16 [History] Atorvastatin [Lipitor] 10 mg PO DAILY 01/01/17 [History] Enalapril [Vasotec] 10 mg PO BID 01/01/17 [History] Multivitamins, Thera [Multivitamin] 1 each PO DAILY@1200 #30 tab 01/02/17 [Rx] Calcium Carbonate [Tums] 500 mg PO TID #90 chewable 01/03/17 [Rx] Cholecalciferol [Vitamin D3] 2,000 unit PO DAILY #90 tablet 01/03/17 [Rx] Enoxaparin Sodium [Lovenox] 30 mg SQ DAILY #30 syringe 01/03/17 [Rx] HYDROcodone/APAP 5-325MG [[place] 5] 1 - 2 each PO Q4-6H PRN #60 tab 01/03/17 [Rx] Sennosides-Docusate Sodium [Senokot-S] 2 tab PO DAILY #30 tablet 01/03/17 [Rx] Follow up Appointment(s)/Referral(s): Yonis Cerda III, MD [Primary Care Provider] - 3 Days Guy Harvey MD [Medical Doctor] - 2 Weeks Activity/Diet/Wound Care/Special Instructions: PATIENTS REPLACEMENT INSULIN FOR HER PUMP IS IN THE Diet: Consistent carb Accu-Cheks before meals and at bedtime Non-weightbearing to the right lower extremity Ice and elevate right ankle Keep splint and dressing dry and intact until follow up appointment Follow up with Dr. Epstein in 2 weeks Call [facility] with any questions or conerns, Discharge Disposition: TRANSFER TO SNF/F
[2017-01-03] MEDS: INSULIN PUMP MEAL BOLUS 1 UNIT MISC MISCELLANE SCH ×5 (10:06→23:41)
[2017-01-03] MEDS: CALCIUM CARBONATE 500 MG CHEWABLE PO SCH ×3 (10:08→20:23)
[2017-01-03] MEDS: ATORVASTATIN 10 MG TAB PO SCH (10:08)
[2017-01-03] MEDS: ASPIRIN 81 MG CHEW PO SCH (10:08)
[2017-01-03] MEDS: ENALAPRIL 10 MG PO SCH ×2 (10:09→20:23)
[2017-01-03] MEDS: ENOXAPARIN 40 MG/0.4 ML SYRINGE SQ SCH (10:09)
[2017-01-03 11:44] LABS: Glucose,Whole Blood 194 mg/dL (75-99)
--- NOTE | 2017-01-03 12:40 | P.CONS ---
History of Present Illness - Chief Complaint Walking difficulty - History of Present Illness I had the opportunity to see patient for inpatient rehab consultation with regard to walking difficulty. Patient admitted slip and fall on ice, outside car and right ankle pain. X-ray demonstrated trimalleolar fracture. Evaluated by orthopedics. Underwent ORIF and tibial IM nail by Dr. Harvey. Has started therapy. PT reports minimal assistance for functional body and gait 10 feet with walker. OT reports modified independent upper dressing. Minimal assistance for lower dressing, bathing, toileting, functional mobility and transfers. Previous functional sick: As elicited patient. It corroborated by daughter and friend. 66-year-old right-handed white female who is lives in one for home alone. Doesn't smoke or drink. Retired. Describes independent with cooking, laundry, driving, standing shower, gait without device. Family history of cancer in mother and heart disease in father. Review of Systems Review of systems: ENT: Denies sneezes or discharge. Eyes: Denies discharge or photophobia. Cardiac: Denies chest pain or palpitation. Pulmonary: Denies cough or shortness of breath. Breast: Denies discharge or lumps. Gastrointestinal: Denies nausea, emesis, constipation, diarrhea. Genitourinary: Denies discharge or frequency. Musculoskeletal: Right ankle pain that goes up to the knee. Neurologic: Denies motor or sensory change. Endocrine: Denies shakes or sweats. Oncology: Denies cancers. Dermatologic: Denies rash, itching, pruritus. ALLERGY/immunology: Denies sneezes, rashes. Past Medical History Past Medical History: CVA/TIA, Diabetes Mellitus, Eye Disorder, Hyperlipidemia, Hypertension, Myocardial Infarction ([place]), Osteoarthritis (OA), Thyroid Disorder Additional Past Medical History / Comment(s): TIA, irregular heart beat, neuropathy feet Last Myocardial Infarction Date:: unknown History of Any Multi-Drug Resistant Organisms: None Reported Past Surgical History: Section, Cholecystectomy Additional Past Surgical History / Comment(s): eye surgery repair retina, laser surgery bilat. Past Anesthesia/Blood Transfusion Reactions: No Reported Reaction, Motion Sickness Past Psychological History: No Psychological Hx Reported Smoking Status: Never smoker Past Alcohol Use History: None Reported Past Drug Use History: None Reported - Past Family History Mother Family Medical History: Cancer, Coronary Artery Disease (CAD) Additional Family Medical History / Comment(s): lymphoma Father Family Medical History: Coronary Artery Disease (CAD) Medications and Allergies Home Medications Medication Instructions Recorded Confirmed Type Artificial Tears-Hypromellose 1 drops BOTH EYES TID PRN 11/12/16 01/01/17 History [Artificial Tear Drops] Aspirin [Adult Low Dose Aspirin EC] 81 mg PO DAILY 11/12/16 01/01/17 History Cholecalciferol [Vitamin D3] 2,000 unit PO DAILY 11/12/16 01/01/17 History Cyanocobalamin [Vitamin B-12] 500 mcg PO DAILY 11/12/16 01/01/17 History Insulin Aspart (For Pump) [NovoLOG 0.01 unit SQ-PUMP CONTINUOUS 11/12/16 History (For Pump)] Levothyroxine Sodium [Synthroid] 75 mcg PO SUMOTUTHFRSA 11/12/16 01/01/17 History Atorvastatin [Lipitor] 10 mg PO DAILY 01/01/17 01/01/17 History Enalapril [Vasotec] 10 mg PO BID 01/01/17 01/01/17 History Allergies Allergy/AdvReac Type Severity Reaction Status Date / Time levothyroxine sodium AdvReac dizzy/nausea/heart Verified 01/01/17 14:14 [From Tirosint] racing Physical Exam Vitals: Vital Signs Temp Pulse Resp BP Pulse Ox 01/03/17 02:00 98.9 F 90 18 131/68 92 L 01/02/17 20:00 99.1 F 104 H 18 144/67 95 01/02/17 14:09 98.0 F 100 18 149/63 96 Intake and Output 01/02/17 01/03/17 01/03/17 22:59 06:59 14:59 Intake Total 360 280 360 Output Total 400 Balance -40 280 360 Intake: IV 280 Sodium Chloride 0.9% 1, 180 000 ml @ 20 mls/hr IV . Q24H EZE Rx#:[id number] ceFAZolin 2 gm In Sodium 100 Chloride 0.9% 100 ml @ 100 mls/hr IVPB Q8H EZE Rx#:[id number] Oral 360 360 Output: Urine 400 Other: Voiding Method Toilet # Voids 3 Skin: Good color, texture, turgor. General: Medium build and comfortable appearance. Head: Normocephalic, atraumatic. Eyes: Symmetric. Pupils equal round. Ears: Symmetric. Hearing within normal limits. Mouth: Clear. Neck: Supple. Carotid without bruit. Cardiac: Regular rate and rhythm. Lungs: Clear anteriorly and posteriorly. Abdomen: Soft active nontender. Extremities: Normal tone. Right foreleg and ankle and posterior shell/cast. Toes clear. Neurological: Mental status: Alert, cooperative, pleasant. Cranial nerves: Symmetric facial tone and trapezius. Motor: Normal strength and isolation all 4 limbs. Giveaway weakness and right leg, course of but does move right toes. Sensation: Intact throughout. DTRs: Symmetric and equal throughout. Mobility: Sits and stands 5% minimal assistance but no verbal cueing or loss of balance. Results CBC & Chem 7: 01/03/17 07:04 01/01/17 19:53 Labs: Abnormal Lab Results - Last 24 Hours (Table) 01/02/17 01/02/17 01/03/17 Range/Units 16:48 20:31 03:26 RBC (3.80-5.40) m/uL Hgb (11.4-16.0) gm/dL Hct (34.0-46.0) % POC Glucose (mg/dL) 250 H 222 H 198 H (75-99) mg/dL 01/03/17 01/03/17 01/03/17 Range/Units 07:04 07:16 11:41 RBC 2.83 L (3.80-5.40) m/uL Hgb 8.6 L (11.4-16.0) gm/dL Hct 26.6 L (34.0-46.0) % POC Glucose (mg/dL) 185 H 194 H (75-99) mg/dL Assessment and Plan (1) Trimalleolar fracture of ankle, closed Status: Acute Plan: Impression: 1. Walking difficulty. 2. Right ankle trimalleolar fracture. 3. Status post ORIF and IM tibial nail. 4. History of stroke and heart attack. 5. Hypertension. 6. Hyperlipidemia. 7. Diabetes. 8. Racheal arthritis. 9. Hypothyroid. Comments and plan: At this time PT and OT are ongoing. Safety concerns noted. There is however no acute medical problem for inpatient hospitalization otherwise. Patient and family mentioned blood sugar but blood sugar was 222. At this time, do not anticipate authorization or insurance for inpatient rehab due to lack of medical necessity. Safety concerns are noted though. Currently would require assistance on discharge.
[2017-01-03] MEDS: CYANOCOBALAMIN 500 MCG TAB PO SCH (14:11)
[2017-01-03] MEDS: CHOLECALCIFEROL 1,000 UNIT TAB PO SCH (14:15)
[2017-01-03] MEDS: MULTIVITAMINS, THERA 1 EACH TAB PO SCH (14:15)
[2017-01-03 16:38] LABS: Glucose,Whole Blood 223 mg/dL (75-99)
--- NOTE | 2017-01-03 19:01 | PN ---
DATE OF SERVICE: 01/03/2017 This 66-year-old woman was admitted with right ankle fracture and ORIF, also has diabetes mellitus. Improved significantly. No chest pain or palpitation. No fever. On exam, alert and oriented times three. Pulse 97, blood pressure 156/70, respirations 18, temperature 97.4. Pulse ox 97% on 2 liters. HEENT: Conjunctivae normal. NECK: No jugular venous distention. CARDIOVASCULAR: S1, S2 muffled. RESPIRATORY: Breath sounds diminished at the bases. A few scattered rhonchi. No crackles. ABDOMEN: Soft status post right ankle arthroplasty. CENTRAL NERVOUS SYSTEM: No focal deficits. LABS: Hemoglobin 8.6. Accu-Cheks are noted. ASSESSMENT: 1. Right ankle fracture, status post ORIF. 2. Diabetes mellitus type 2, insulin pump. 3. History of coronary artery disease. 4. History of recent negative stress test. 5. History of cerebrovascular accident, transient ischemic attack. 6. Hypertension. 7. Hyperlipidemia. 8. History of degenerative joint disease. 9. History of hypothyroidism. 10. Anemia, possibly dilutional. 11. History of transient ischemic attack. 12. Peripheral neuropathy. 13. cardiac rhythm history. 14. Increased BUN. 15. FULL CODE. RECOMMENDATIONS AND DISCUSSION: In this 66-year-old woman who presented with multiple complex medical issues, we will monitor the patient closely. Continue the current medications and symptomatic treatment. Inpatient rehab with Dr. Segal is being considered. Otherwise, continue with the current medications. Monitor closely. Further recommendations to follow. ZUHAIRD
[2017-01-03 20:19] VITALS: RESP 16
[2017-01-03] MEDS: SENNOSIDES-DOCUSATE SODIUM 1 EACH TAB PO SCH (20:22)
[2017-01-03 20:30] LABS: Glucose,Whole Blood 183 mg/dL (75-99)
[2017-01-04] MEDS: HYDROcodone/APAP 5-325MG 1 EACH TAB PO PRN ×3 (02:59→10:59)
[2017-01-04 03:10] LABS: Glucose,Whole Blood 163 mg/dL (75-99)
[2017-01-04] MEDS: LEVOTHYROXINE 75 MCG TAB PO SCH (05:20)
[2017-01-04 07:31] LABS: Glucose,Whole Blood 136 mg/dL (75-99)
[2017-01-04] MEDS: INSULIN PUMP MEAL BOLUS 1 UNIT MISC MISCELLANE SCH (08:03)
[2017-01-04] MEDS: ATORVASTATIN 10 MG TAB PO SCH (08:04)
[2017-01-04] MEDS: ENOXAPARIN 40 MG/0.4 ML SYRINGE SQ SCH (08:04)
[2017-01-04] MEDS: CYANOCOBALAMIN 500 MCG TAB PO SCH (08:04)
[2017-01-04] MEDS: CHOLECALCIFEROL 1,000 UNIT TAB PO SCH (08:04)
[2017-01-04] MEDS: ASPIRIN 81 MG CHEW PO SCH (08:04)
[2017-01-04] MEDS: ENALAPRIL 10 MG PO SCH (08:05)
[2017-01-04] MEDS: CALCIUM CARBONATE 500 MG CHEWABLE PO SCH (08:05)
[2017-01-04] MEDS: MULTIVITAMINS, THERA 1 EACH TAB PO SCH (08:05)
[2017-01-04 08:12] VITALS: BP 131/62; PULSE 80; TEMP 98.2
--- NOTE | 2017-01-04 20:22 | PN ---
DATE OF SERVICE: 01/04/2017 This 66 -year-old woman was admitted to the hospital with right ankle fracture and ORIF [facility]. No chest pain. No palpitations. No fever. On exam, alert and oriented x3. Pulse is 90, blood pressure 160/70, respiratory rate 16, temperature is 98.6. Pulse ox 93% on room air. HEENT: Conjunctivae normal. NECK: No jugular venous distention. CARDIOVASCULAR: S1. S2 muffled. RESPIRATORY: Breath sounds diminished in the bases. Scattered rhonchi, no crackles. ABDOMEN: Soft, nontender. Legs: Status post right ankle ORIF. LABS: Hemoglobin 8.6. Glucose noted. ASSESSMENT: 1. Right ankle fracture, status post ORIF. 2. Diabetes mellitus type 2 on insulin pump. 3. History of coronary artery disease. 4. History of recent negative stress test. 5. History of cerebrovascular accident, transient ischemic attack. 6. Hypertension. 7. Hyperlipidemia. 8. History of degenerative joint disease. 9. History of hypothyroidism. 10. Anemia, possibly dilutional. 11. History of transient ischemic attack. 12. Peripheral neuropathy. 13. Cardiac rhythm abnormal history. 14. Increased BUN. 15. FULL CODE. RECOMMENDATIONS AND DISCUSSION: Recommend to continue current medications, continue symptomatic treatment. performed. Continue to monitor. Closely follow with Dr. Cerda after discharge. Further recommendations to follow. MTDD
== END 2017-01-04 11:10 | DRG 493 ==
LOC: EC 03:25 → 3SUR 05:34 → 6PED 06:18 → OBSVTOIN 18:58 → 3SUR 19:54
PROVIDERS: ADMIT Orthopaedic Surgery; ATTEND Orthopaedic Surgery
PROC: 0QSG34Z Reposition Right Tibia with Internal Fixation Device, Percutaneous Approach (ICD-10-PCS; 2017-01-01)
PROC: 0QSG06Z Reposition Right Tibia with Intramedullary Internal Fixation Device, Open Approach (ICD-10-PCS; principal; 2017-01-01 10:55)
DX: S82.851A Displaced trimalleolar fracture of right lower leg, initial encounter for closed fracture (principal); S82.251A Displaced comminuted fracture of shaft of right tibia, initial encounter for closed fracture; E11.40 Type 2 diabetes mellitus with diabetic neuropathy, unspecified; E78.5 Hyperlipidemia, unspecified; I25.2 Old myocardial infarction; M19.90 Unspecified osteoarthritis, unspecified site; M81.0 Age-related osteoporosis without current pathological fracture; E03.9 Hypothyroidism, unspecified; D64.9 Anemia, unspecified; I10 Essential (primary) hypertension; R26.2 Difficulty in walking, not elsewhere classified; I25.10 Atherosclerotic heart disease of native coronary artery without angina pectoris; Z86.73 Personal history of transient ischemic attack (TIA), and cerebral infarction without residual deficits; Z90.49 Acquired absence of other specified parts of digestive tract; Z79.4 Long term (current) use of insulin; Z79.82 Long term (current) use of aspirin; Z96.41 Presence of insulin pump (external) (internal); Z79.899 Other long term (current) drug therapy; W00.0XXA Fall on same level due to ice and snow, initial encounter; Y92.007 Garden or yard of unspecified non-institutional (private) residence as the place of occurrence of the external cause
CPT/HCPCS: 29505; 36415; 80053; 82306; 83036; 85025; 86850; 86900; 86901; 93005; 94760; 99285

== ENCOUNTER → 2017-08-01 | Outpatient (CLI) | payer MEDICARE, BC | END | disposition home or self-care (01) | LOC: LABWHC1 16:25 | PROVIDERS: ATTEND Orthopaedic Surgery | DX: S91.001A Unspecified open wound, right ankle, initial encounter (principal) | CPT/HCPCS: 87070; 87075; 87077; 87186; 87205 ==

== ENCOUNTER → 2019-02-18 | Outpatient (CLI) | payer MEDICARE, BC ==
--- NOTE | 2019-02-19 11:15 | MM ---
Reason for exam: screening (asymptomatic). Last mammogram was performed 1 year and 2 months ago. History: Patient history of other cancer. Excisional biopsy of the left breast, 2014. Physical Findings: A clinical breast exam by your physician is recommended on an annual basis and results should be correlated with mammographic findings. MG 3D Screening Mammo W/Cad Bilateral CC and MLO view(s) were taken. Prior study comparison: December 08, 2017, mammogram, performed at [facility]. November 02, 2015, mammogram, performed at [facility]. There are scattered fibroglandular densities. No significant changes when compared with prior studies. ASSESSMENT: Benign, BI-RAD 2 RECOMMENDATION: Routine screening mammogram of both breasts in 1 year.
== END | disposition home or self-care (01) ==
LOC: RADMAMWWP 07:17
PROVIDERS: ATTEND Family Medicine
DX: Z12.31 Encounter for screening mammogram for malignant neoplasm of breast (principal)
CPT/HCPCS: 77063; 77067

== ENCOUNTER → 2020-09-14 | Outpatient (CLI) | payer MEDICARE, BC ==
--- NOTE | 2020-09-14 17:03 | US ---
EXAMINATION TYPE: US kidneys/renal and bladder DATE OF EXAM: 09/14/2020 COMPARISON: US 2012 CLINICAL HISTORY: N28.1 Cyst on kidney. Possible cyst visualized on outside MRI on left kidney EXAM MEASUREMENTS: Right Kidney: 10.5 x 5.1 x 5.1 cm Left Kidney: 10.6 x 4.6 x 4.7 cm Right Kidney: Lower pole gassed out, no evidence of hydro, possible 5mm calculus mid Left Kidney: No evidence of hydro, probable 8mm calculus lateral, no evidence of cyst visualized Bladder: wnl Bilateral Jets seen: Yes Increased cortical echogenicity in both kidneys. 5 mm hyperechoic focus midpole of the right kidney c ould reflect nonobstructing calculus. Bladder not greatly distended. Bilateral distal ureter jets see n. 8 mm shadowing hyperechoic focus upper pole level left kidney noted. This was present on prior efrain dy 2011. IMPRESSION: Possible nonobstructing bilateral renal calculi currently. No concerning solid or cystic renal mass seen on images saved. Consider further investigation with renal protocol contrast enhanced CT or MRI based on correlation with outside MRI lumbar spine report. This and images not available t o me at time of dictation.
== END | disposition home or self-care (01) ==
LOC: RADUSWWP 16:06
PROVIDERS: ATTEND Family Medicine
DX: N28.1 Cyst of kidney, acquired (principal)
CPT/HCPCS: 76770

== ENCOUNTER → 2020-12-08 | Outpatient (CLI) | payer MEDICARE, BC ==
--- NOTE | 2020-12-12 09:12 | MM ---
Reason for exam: screening (asymptomatic). Last mammogram was performed 1 year and 10 months ago. History: Patient is postmenopausal and history of other cancer. Excisional biopsy of the left breast, 2014. Took hormonal contraceptives for 25 years. Physical Findings: A clinical breast exam by your physician is recommended on an annual basis and results should be correlated with mammographic findings. MG 3D Screening Mammo W/Cad Bilateral CC and MLO view(s) were taken. Prior study comparison: February 18, 2019, bilateral MG 3d screening mammo w/cad. December 08, 2017, mammogram, performed at [facility]. There are scattered fibroglandular densities. Previous mammotome biopsy in the left breast. No significant changes when compared with prior studies. ASSESSMENT: Negative, BI-RAD 1 RECOMMENDATION: Routine screening mammogram of both breasts in 1 year.
== END | disposition home or self-care (01) ==
LOC: RADMAMWWP 11:13
PROVIDERS: ATTEND Family Medicine
DX: Z12.31 Encounter for screening mammogram for malignant neoplasm of breast (principal)
CPT/HCPCS: 77063; 77067

== ENCOUNTER → 2021-04-30 | Outpatient (CLI) | payer MEDICARE, BC ==
--- NOTE | 2021-04-30 09:28 | P.PAINCN ---
History of Present Illness - Reason for Consult Consult date: 04/30/21 - History of Present Illness This is 71 years old female with a chronic history of severe low back pain with radiation to the left lower extremity, the pain started more than a year ago she denies any initiating event, last year she is done physical therapy, and she has interventional pain management procedure which improved her low back pain, and she did fairly well until 3 months ago, started having severe low back pain with radiation to the left lower extremity associated with some numbness and tingling sensation, she feels some weakness in her lower extremity, she is able to ambulate, she denies any fever or night sweats, she denies any change in the bowel movement or urination, currently she is doing home exercise, continued to have severe pain intensity of the pain interferes with the quality of life , and interfered with the activity of daily livings Past Medical History Past Medical History: CVA/TIA, Diabetes Mellitus, Eye Disorder, Hyperlipidemia, Hypertension, Myocardial Infarction ([place]), Osteoarthritis (OA), Thyroid Disorder Additional Past Medical History / Comment(s): TIA, irregular heart beat, neuropathy feet Last Myocardial Infarction Date:: unknown History of Any Multi-Drug Resistant Organisms: None Reported Past Surgical History: Section, Cholecystectomy Additional Past Surgical History / Comment(s): eye surgery repair retina, laser surgery bilat. Past Anesthesia/Blood Transfusion Reactions: No Reported Reaction, Motion Sickness Smoking Status: Never smoker - Past Family History Mother Family Medical History: Cancer, Coronary Artery Disease (CAD) Additional Family Medical History / Comment(s): lymphoma Father Family Medical History: Coronary Artery Disease (CAD) Medications and Allergies Home Medications Medication Instructions Recorded Confirmed Type Artificial Tears-Hypromellose 1 drops BOTH EYES TID PRN 11/12/16 04/30/21 History [Artificial Tear Drops] Aspirin [Adult Low Dose Aspirin EC] 81 mg PO DAILY 11/12/16 04/30/21 History Insulin Aspart (For Pump) [NovoLOG 50 unit SQ-PUMP DAILY 11/12/16 04/30/21 History (For Pump)] Levothyroxine Sodium [Synthroid] 75 mcg PO SUMOTUTHFRSA 11/12/16 04/30/21 History Atorvastatin [Lipitor] 10 mg PO DAILY 01/01/17 04/30/21 History Enalapril [Vasotec] 2.5 mg PO BID 01/01/17 04/30/21 History Multivitamins, Thera [Multivitamin 1 each PO DAILY@1200 #30 tab 01/02/17 04/30/21 Rx (formulary)] Cholecalciferol [Vitamin D3] 2,000 unit PO DAILY #90 tablet 01/03/17 04/30/21 Rx Allergies Allergy/AdvReac Type Severity Reaction Status Date / Time levothyroxine sodium AdvReac dizzy/nausea/heart Verified 01/01/17 14:14 [From Tirosint] racing Physical Exam Vitals: Vital Signs Temp Pulse Resp BP Pulse Ox 04/30/21 08:55 98.3 F 73 18 165/81 95 Intake and Output 04/29/21 04/30/21 04/30/21 22:59 06:59 14:59 Other: Weight 66.678 kg Physical Examinations : -Constitutiona : Cooperative , not in acute distress . -HEENT : nech : supple , no Lymphadenopathy , normal thyroid size . : eyes : no ptosis , no icterus, no photophobia . - neurologic : Cranial nerve II to XII intact , no focal neurological deffecit . -psychatric : alert , oriented X 3 , appropriate affect , intact judgment and insight . -Lymphatic : no Lymphadenopathy . - musculoskeltal : . Lumber spine moter stegnth lower extremities ,thigh and legs 5/5 Right side , 5/5 Left side deep tendon reflexes : normal Knee Jerk , normal ankle Jerk lumber facet Loading Test =positive Right , positive Left Range of motion of the lumbar spine Flexion 30 degrees, extension 10 degrees strait leg raising test = positive at 30 degree Fabere test= positive Right , and positive LT . mild tenderness over the Sacroiliac joint on the Right , and Left sides Results Comments: MRI of the lumbar spine multilevel lumbar bulging disc disease at L2-3 and L3 4 L4 5 and L5-S1 and multilevel lumbar facet arthropathy Assessment and Plan Plan: Assessment and plan=1-lumbar radiculopathy. 2-lumbar degenerative disc disease. 3-lumbar spondylosis with lumbar facet arthropathy. Patient could benefit from a left-sided transforaminal epidural steroid injection at L4 5 and L5-S1 under fluoroscopy guidance Time with Patient: Greater than 30 PQRS Measure Charge Sheet Measure #130: Documentation of Current Meds in Medical Chart: Patient's medications documented in chart Measure #226: Tobacco Use: Screen & Cessation Intervention: Pt not a tobacco user Measure #111: Pneumonia Vaccination: Pneumococcal vaccine administered or previously received Measure #47: Advance Care Plan: Advance care planning discussed & documented, pt chose/unable to give Measure #412: Opioid Treatment Agreement: No documentation of signed opioid treatment agreement Measure #408: Opioid Therapy Follow-up Evaluation: Patient had NO f/u eval minimum every 3 months during opioid therapy Measure #317: Preventitive Care & Scrn High Bld Press & F/U: Pre-hypertensive or hypertensive BP documented, pt will f/u with PCP Measure #128: Body Mass Index (BMI) Screening & Follow-up: BMI documented within normal parameters Measure #131: Pain Assessment & Follow-up: Follow-up scheduled Measure #431: Unhealthy Alcohol Use Preventative Care & Scrn: Patient not identified as an unhealthy alcohol user PQRS Narrative: Smoking Status Never smoker Blood Pressure 165/81 Pain Intensity [Lower Back] 5 Scale Used Numeric (1 - 10) Hx Alcohol Use (MH) No Home Medications: Ambulatory Orders Artificial Tears-Hypromellose [Artificial Tear Drops] 1 drops BOTH EYES TID PRN 11/12/16 Aspirin [Adult Low Dose Aspirin EC] 81 mg PO DAILY 11/12/16 Insulin Aspart (For Pump) [NovoLOG (For Pump)] 50 unit SQ-PUMP DAILY 11/12/16 Levothyroxine Sodium [Synthroid] 75 mcg PO SUMOTUTHFRSA 11/12/16 Atorvastatin [Lipitor] 10 mg PO DAILY 01/01/17 Enalapril [Vasotec] 2.5 mg PO BID 01/01/17 Multivitamins, Thera [Multivitamin (formulary)] 1 each PO DAILY@1200 #30 tab 01/02/17 Cholecalciferol [Vitamin D3] 2,000 unit PO DAILY #90 tablet 01/03/17
== END ==
CPT/HCPCS: 99211

== ENCOUNTER → 2021-05-25 | Outpatient (CLI) | payer MEDICARE, BC | END | disposition home or self-care (01) ==

== ENCOUNTER → 2023-06-19 | Outpatient (CLI) | payer MEDICARE, BC ==
--- NOTE | 2023-06-20 07:26 | BD ---
EXAMINATION TYPE: Axial Bone Density DATE OF EXAM: 06/19/2023 CLINICAL HISTORY: 73 years old Female. ICD-10 CODE: E10.65 Height: 5 ft 3 1/2 in Weight: 145 FRAX RISK QUESTIONS: Alcohol (3 or more units per day): no Family History (Parent hip fracture): no Glucocorticoids (More than 3mos): no (Ex: prednisone, prednisolone, methylprednisolone, dexamethasone, and hydrocortisone). History of Fracture in Adulthood: yes Secondary Osteoporosis: 1. Type 1 Diabetes: yes 2. Hyperthyroidism: no 3. Menopause before 45: no 4. Malnutrition: no 5. Chronic liver disease: no Rheumatoid Arthritis: no Current Tobacco Use: no RISK FACTORS HISTORY OF: Surgery to Spine/Hip(right/left)/Wrist (right/left): lumbar 2020 Family History of Osteoporosis: no Active: yes Diet low in dairy products/other sources of calcium: no Postmenopausal woman: yes Take estrogen and/or progesterone medications: no Lost more than 2 inches in height since high school: no Frequent falls: no Poor Health: fair Hyperparathyroidism: no Adrenal Insufficiency: no MEDICATIONS: Thyroid Medications: yes Which medication: levothyroxine How Lon years Additional Medications: levothyroxine,insulin, enalapril, atorvastatin, vit d , baby aspirin Additional History: EXAM MEASUREMENTS: Bone mineral densitometry was performed using the [employer]. Bone mineral density as measured about the Lumbar spine is: ----- L1-L4(G/cm2): 0.778 T Score Values are as follows: ----- L1: -2.9 ----- L2: -4.3 ----- L3: -3.7 ----- L4: -2.8 ----- L1-L4: -3.4 Z Score Values are as follows: ----- L1: -1.2 ----- L2: -2.6 ----- L3: -2.0 ----- L4: -1.1 ----- L1-L4: -1.6 prev long ago Bone mineral density about the R hip (g/cm2): 0.600 Bone mineral density about the L hip (g/cm2): 0.626 T Score values are as follows: -----R Neck: -3.1 -----L Neck: -3.0 -----R Total: -3.4 -----L Total: -2.7 Z Score values are as follows: -----R Neck: -1.3 -----L Neck: -1.1 -----R Total: -1.7 -----L Total: -1.0 prev long ago FRAX%s: The graph provided illustrates a 33.1 % chance for a major osteoporotic fx and a 13.2 % chanc e for the hips probability for fx in 10 years time. IMPRESSION: Osteoporosis (T Score less than -2.5). There is increased fracture risk and therapy is usually indicated based on age. Re-Screen 1-2 years. NOTE: T-SCORE=SD OF THE YOUNG ADULT MEAN.
--- NOTE | 2023-06-20 08:50 | MM ---
Reason for Exam: Screening (asymptomatic). Last mammogram was performed 1 year(s) and 3 month(s) ago. Patient History: Menarche at age 14. First Full-Term at age 27. Postmenopausal. Other cancer. Patient used Hormonal Contraceptives for 25 years. 2014, Excisional Biopsy on the Left side. Risk Values: Lena 5 year model risk: 2.1%. NCI Lifetime model risk: 4.9%. Prior Study Comparison: 02/18/2019 Bilateral Screening Mammogram, [facility]. 12/08/2020 Bilateral Screening Mammogram, [facility]. 04/05/2022 Bilateral MG 3D screening mammo w/cad, [facility]. Tissue Density: The breast tissue is heterogeneously dense. This may lower the sensitivity of mammography. Findings: Analyzed By CAD. There is no suspicious group of microcalcifications or new suspicious mass in either breast. Biopsy clip within the left breast. Benign calcifications within both breasts. Stable chronic nodularity within the left breast. Overall Assessment: Benign, BI-RAD 2 Management: Screening Mammogram of both breasts in 1 year. A clinical breast exam by your physician is recommended on an annual basis and results should be correlated with mammographic findings. Note on Lena scores and lifetime risk: 1. A Lena score greater than 3% is considered moderate risk. If this is the case, consider specialist referral to assess eligibility for a risk reducing agent. If overall lifetime risk for the development of breast cancer is 20% or higher, the patient may qualify for future screening with alternating mammogram and breast MRI. Electronically signed and approved by: Calvin Sanchez D.O.
== END | disposition home or self-care (01) ==
LOC: RADBDWWP 16:15
PROVIDERS: ATTEND Internal Medicine Endocrinology, Diabetes & Metabolism
DX: Z12.31 Encounter for screening mammogram for malignant neoplasm of breast (principal); M81.0 Age-related osteoporosis without current pathological fracture; M85.89 Other specified disorders of bone density and structure, multiple sites; E10.65 Type 1 diabetes mellitus with hyperglycemia
CPT/HCPCS: 77063; 77067; 77080

== ENCOUNTER → 2023-11-11 | Outpatient (CLI) | payer MEDICARE, BC ==
--- NOTE | 2023-11-18 16:22 | CT ---
EXAMINATION TYPE: CT foot LT wo con DATE OF EXAM: 11/11/2023 COMPARISON: No radiographic correlation available HISTORY: 73-year-old female fell off curb, confirmed fractures of left foot. S92.312A TECHNIQUE: Contiguous axial scanning of the left foot without IV contrast. Coronal and sagittal recon structions performed. 3-D reconstructions generated on a dedicated independent workstation. CT DLP: 212.8 mGycm Automated exposure control for dose reduction was used. FINDINGS: Impacted and laterally angulated fractures at the level of the second through fourth metatarsal necks . Comminuted, impacted fracture involving the first metatarsal base. There is a 5 mm dorsal displacemen t and intra-articular extension into both the TMT and first-second intermetatarsal joints. There is a small osteochondral defect measuring 5 x 4 mm along the mid medial talar dome. Small ossif ic densities measuring up to 4 mm low-density medial malleolus suggesting sequela of remote injury. Subtalar joint is aligned well with prominent subchondral cystic change along the posterior subtalar joint. Marked diffuse soft tissue swelling IMPRESSION: 1. COMMINUTED, MILDLY IMPACTED FRACTURE OF THE FIRST METATARSAL BASE WITH 5 MM OF DORSAL DISPLACEMENT . INTRA-ARTICULAR EXTENSION INTO BOTH THE TMT AND FIRST-SECOND INTERMETATARSAL JOINTS. 2. IMPACTED AND LATERALLY ANGULATED FRACTURES OF THE SECOND THROUGH FOURTH METATARSAL NECKS. 3. SMALL 5 X 4 MM OCD MEDIAL TALAR DOME. 4. MODERATE OA POSTERIOR SUBTALAR JOINT. 5. MARKED GENERALIZED SOFT TISSUE SWELLING.
== END | disposition home or self-care (01) ==
LOC: RADCTMAIN 15:41
PROVIDERS: ATTEND Orthopaedic Surgery
DX: M19.072 Primary osteoarthritis, left ankle and foot (principal); S92.312A Displaced fracture of first metatarsal bone, left foot, initial encounter for closed fracture; S92.322A Displaced fracture of second metatarsal bone, left foot, initial encounter for closed fracture; S92.332A Displaced fracture of third metatarsal bone, left foot, initial encounter for closed fracture; S92.342A Displaced fracture of fourth metatarsal bone, left foot, initial encounter for closed fracture; S82.831A Other fracture of upper and lower end of right fibula, initial encounter for closed fracture; M79.89 Other specified soft tissue disorders; M93.272 Osteochondritis dissecans, left ankle and joints of left foot; X58.XXXA Exposure to other specified factors, initial encounter